=== PATIENT | male | born 1965 | race Asian ===

== ENCOUNTER 2017-09-21 09:24 | Emergency (ER) | payer OTHER ==
[2017-09-21 09:34] VITALS: BP 134/80
[2017-09-21] MEDS ORDERED: LIDOCAINE 1% 2 ML VIAL ONE (10:25)
--- NOTE | 2017-09-21 10:28 | ED Physician Documentation ---
PD HPI SKIN - Stated complaint Stated Complaint: CHEST INCISION CYST - Chief complaint Chief Complaint: Wound - History obtained from History obtained from: Patient - History of Present Illness Timing - onset: How many days ago (4) Timing - duration: Days (4) Timing - details: Gradual onset, Still present Location: Chest Quality / character: Painful, Swelling, Draining Associated symptoms: No: Fever, Myalgias Similar symptoms before: Has not had sx before Recently seen: Not recently seen - Additional information Additional information: 51-year-old male who is had a bypass operation done about 3 years ago has developed an area in the lower portion of the scar that has become swollen and tender and it is started to drain some yellowish fluid. He states that he is always had a small lump in this area but it is never drained and it is never become swollen. Review of Systems Constitutional: denies: Fever, Chills Ears: denies: Ear pain Nose: denies: Congestion Throat: denies: Sore throat Cardiac: denies: Chest pain / pressure, Palpitations Respiratory: denies: Dyspnea, Cough GI: denies: Abdominal Pain, Nausea, Vomiting : denies: Dysuria Skin: reports: Lesions Musculoskeletal: denies: Neck pain, Back pain, Extremity pain PD PAST MEDICAL HISTORY - Past Medical History Cardiovascular: [place] Respiratory: None Neuro: None Endocrine/Autoimmune: None GI: None : None HEENT: None Psych: None Musculoskeletal: None Derm: None - Past Surgical History Past Surgical History: No Ortho: Spine surgery Cardiovascular: CABG - Present Medications Home Medications: Ambulatory Orders Medication Instructions Recorded Confirmed Sulfamethoxazole/Trimethoprim 1 each PO BID #14 tablet 09/21/17 [Sulfamethoxazole-Tmp Ds Tablet] - Allergies Allergies/Adverse Reactions: Allergies Allergy/AdvReac Type Severity Reaction Status Date / Time No Known Drug Allergies Allergy Verified 09/21/17 09:34 - Social History Does the pt smoke?: No Smoking Status: Never smoker Does the pt drink ETOH?: Yes Does the pt have substance abuse?: No - Immunizations Immunizations are current?: Yes - POLST Patient has POLST: No PD ED PE NORMAL - Vitals Vital signs reviewed: Yes (hypertensive ) - General General: Alert and oriented X 3, No acute distress, Well developed/nourished - HEENT HEENT: Atraumatic, PERRL, EOMI - Respiratory Respiratory: No respiratory distress - Derm Derm: Normal color, Warm and dry, No rash, Other (over the anterior chest at the lower end of the CABG scar there is an area of swelling with fluctuance. There is not a lot of redness around the area. ) - Extremities Extremities: No deformity, No edema - Neuro Neuro: No motor deficit, No sensory deficit Eye Opening: Spontaneous Motor: Obeys Commands Verbal: Oriented GCS Score: 15 - Psych Psych: Normal mood, Normal affect Results - Vitals Vitals: Vital Signs - 24 hr 09/21/17 09:30 Temperature 36.3 C L Heart Rate 74 Respiratory 14 Rate Blood Pressure 134/80 H O2 Saturation 95 Oxygen O2 Source Room air Procedures - Abscess I&D (location) chest Preparation: Chlorhexadine, Lidocaine 1% Incision: Incised with scalpel, Purulent drainage, Loculations broken, Irrigated , Culture obtained Other: Pt tolerated well, Dressing applied, Antibiotic prescribed PD MEDICAL DECISION MAKING - ED course Complexity details: reviewed old records, considered differential, d/w patient ED course: 51-year-old male with an abscess to the anterior chest wall in his CABG scar tolerates incision and drainage well with improvement in his symptoms. A small amount of pus is drained from the area and a culture is obtained. Will place him on some Sept. Departure - Departure Disposition: 01 Home, Self Care Clinical Impression: Abscess Condition: Stable Instructions: ED Abscess IandD Follow-Up: Bernardo Bhakta MD [Primary Care Provider] - Prescriptions: Sulfamethoxazole/Trimethoprim [Sulfamethoxazole-Tmp Ds Tablet] 1 each PO BID # 14 tablet
== END 2017-09-21 10:32 | disposition home or self-care (01) ==
LOC: ED 09:24
DX: J86.9 Pyothorax without fistula (principal); I25.2 Old myocardial infarction; Z95.1 Presence of aortocoronary bypass graft
CPT/HCPCS: 10060; 87070; 87205; 99283

== ENCOUNTER 2023-01-18 08:13 | Outpatient (CLI) | payer OTHER ==
--- NOTE | 2023-01-18 10:19 | XRAY Report ---
PROCEDURE: Hand 3 View RT INDICATIONS: PAIN TECHNIQUE: 3 views of the hand(s) acquired. COMPARISON: None. FINDINGS: Bones: No fractures or dislocations. No suspicious bony lesions. Minimal marginal spurring at the b ase of the third proximal phalanx. No significant joint space narrowing. Soft tissues: No suspicious soft tissue calcifications or masses. IMPRESSION: No acute bony abnormality. If pain persists with conservative management, consider repeat radiographs in 10-14 days or cross-sectional imaging. Reviewed by: J Carlos Farah MD on 01/18/2023 10:18 AM PDT Approved by: J Carlos Farah MD on 01/18/2023 10:18 AM PDT Station ID: [id number]
== END 2023-01-18 08:14 | disposition home or self-care (01) ==
LOC: DI 08:13
PROVIDERS: ATTEND Physician Assistant
DX: M79.641 Pain in right hand (principal)

== ENCOUNTER 2023-07-03 17:39 | Emergency (ER) | payer OTHER ==
[2023-07-03 17:56] VITALS: BP 159/86; O2SAT 98
--- NOTE | 2023-07-03 18:13 | ED Physician Documentation ---
PD HPI UPPER EXT INJURY - Stated complaint Stated Complaint: LT FINGER LAC - Chief complaint Chief Complaint: Laceration - History obtained from History obtained from: Patient - Additonal information Additional information: Patient is a 57-year-old male presenting for evaluation of injury to his left i ndex finger. Patient was trying to open a pistachio with a pair of scissors and accidentally cut himself. This occurred around noon time. He does take aspirin daily. He has been unable to get the bleeding to stop since. His last tetanus dose was in 2021. Patient denies pain or injury elsewhere. Review of Systems Skin: reports: Laceration (s) Musculoskeletal: denies: Extremity pain PD PAST MEDICAL HISTORY - Past Medical History Past Medical History: Yes Cardiovascular: [place] Respiratory: None Endocrine/Autoimmune: None GI: None : None HEENT: None Psych: None Musculoskeletal: None Derm: None - Past Surgical History Past Surgical History: No Ortho: Spine surgery Cardiovascular: CABG - Present Medications Home Medications: Ambulatory Orders Medication Instructions Recorded Confirmed Aspirin [[place] Aspirin] 81 mg PO DAILY 07/03/23 07/03/23 Atorvastatin [Lipitor] 40 mg PO QPM 07/03/23 07/03/23 Metoprolol Succinate [Toprol Xl] 25 mg PO ONCE 07/03/23 07/03/23 - Allergies Allergies/Adverse Reactions: Allergies Allergy/AdvReac Type Severity Reaction Status Date / Time No Known Drug Allergies Allergy Verified 07/03/23 17:52 - Social History Does the pt smoke?: No Smoking Status: Never smoker Does the pt drink ETOH?: Yes Does the pt have substance abuse?: No - Immunizations Immunizations are current?: Yes - POLST Patient has POLST: No PD ED PE NORMAL - General General: Alert and oriented X 3, No acute distress, Well developed/nourished - HEENT HEENT: Atraumatic - Neck Neck: Supple, no meningeal sign - Cardiac Cardiac: Strong equal pulses - Respiratory Respiratory: No respiratory distress - Extremities Extremities: Other (1 cm circular avulsion from distal portion of left index finger on the volar aspect, normal range of motion of digit, good cap refill) PD ED PE EXPANDED - Extremities DESIRAE UE/Hands Visual: 1 - laceration Results - Vitals Vitals: Vital Signs - 24 hr 07/03/23 07/03/23 17:49 19:02 Temperature 36 C L Heart Rate 64 Respiratory 15 17 Rate Blood Pressure 159/86 H O2 Saturation 98 Oxygen O2 Source Room air Procedures - Laceration (location) Left index finger Wound type: Irregular (Circular avulsion) Neurovascular status: Sensory intact, Motor intact, Vascular intact Tendon involvement: Tendon intact Wound preparation: Hibiclens, Irrigated copiously NS Skin layer closure: Dermabond Other: Patient tolerated well, No complications, Neurovascular intact, Dressing applied, Tetanus UTD PD Medical Decision Making - ED course ED course: Pt with laceration to L index finger. Avulsion towards fingertip pad. neurovascularly intact. Nothing to suture together but wound is bleeding. Hemostasis achieved using tourniquet and then dermabond application. Tourniquet removed and dressing applied. Pt understands continued wound care as well as concerning symptoms to return for. Departure - Departure Disposition: 01 Home, Self Care Clinical Impression: Laceration of left index finger Condition: Stable Instructions: ED Laceration Ext Skin Glue, ED Avulsion Dermal Comments: You were treated for a laceration to your left index finger. There was a missing piece of skin from the wound so unfortunately we are not able to use sutures to close the wound. Instead we used skin glue To help start the clotting process to allow the wound to heal. Your last tetanus was in 2021. We have placed a dressing and I would recommend keeping this dressing on for the n ext 24 hours. The skin glue will come off on its own in approximately 5 to 10 days. Please use caution with the area of the wound and you may want to wear a dressing in order to prevent accidentally hitting or bumping the area which may cause the wound to open back up. Return to the emergency department with any new or worsening symptoms. Forms: PCP List Discharge Date/Time: 07/03/23 19:05
[2023-07-03] MEDS: BUFFERED LIDOCAINE 10 ML SYRINGE SUBQ STA (18:56)
== END 2023-07-03 19:05 | disposition home or self-care (01) ==
LOC: ED 17:39
DX: S61.211A Laceration without foreign body of left index finger without damage to nail, initial encounter (principal); W27.2XXA Contact with scissors, initial encounter
CPT/HCPCS: 12001; 99281